=== PATIENT | female | born 1940 | race Caucasian/White ===

== ENCOUNTER 2021-01-02 22:26 | Observation (INO) ==
[2021-01-02] MEDS ORDERED: methylPREDNISolone SOD SUC 125 MG/2 ML VIAL IV STA (23:12)
[2021-01-02] MEDS ORDERED: cefTRIAXone 1,000 MG in SODIUM CHLORIDE 0.9% 100 ML IV STA (23:37)
[2021-01-02] MEDS ORDERED: ALBUTEROL INHALER 18 GM INH PRN (23:47)
[2021-01-02 23:55] LABS: Basophils # 0.1 10*3/uL (0.0-0.2); Basophils % 0.6 % (0.0-0.8); Hematocrit 42.2 VOL% (35.7-47.0); Hemoglobin 13.1 GM/DL (12.0-16.0); Immature Granulocytes % 1.6 %; Immature Granulocytes Absolute 0.23 #; Lymphocytes # 1.4 10*3/uL (1.4-4.0); Lymphocytes % 9.8 % (21.3-54.2); Mean Corpuscular Volume 83.2 FL (87-102); Mean Platelet Volume 9.2 FL (9.6-12.0); Monocytes % 3.3 % (1.7-12.7); Neutrophils % 84.7 % (38.7-73.9); Platelet Count 258 T/CUMM (130-400); Red Blood Count 5.07 MC/CUMM (3.8-5.5); White Blood Count 14.1 T/CUMM (4-12)
[2021-01-03 00:11] LABS: Calcium 9.3 MG/DL (8.5-10.1); Osmolality,Calculated 283.7 MOS/KG (273-304); Potassium 4.5 MMOL/L (3.5-5.1)
[2021-01-03] MEDS ORDERED: GLUCAGON 1 MG VIAL IM PRN (01:00)
[2021-01-03] MEDS ORDERED: ACETAMINOPHEN 325 MG TABLET PO PRN (01:00)
[2021-01-03] MEDS ORDERED: DEXTROSE 50% 25 GM/50 ML VIAL IV PRN (01:00)
[2021-01-03] MEDS ORDERED: ONDANSETRON 4 MG/2 ML VIAL IV PRN (01:00)
[2021-01-03] MEDS: methylPREDNISolone SOD SUC 40 MG/1 ML VIAL IV SCH ×3 (02:28→18:43)
[2021-01-03] MEDS ORDERED: cloNIDine 0.1 MG TABLET PO ONE ×2 (04:00→19:00)
[2021-01-03 06:26] LABS: Basophils % 0.4 % (0.0-0.8); Hematocrit 41.4 VOL% (35.7-47.0); Hemoglobin 13.1 GM/DL (12.0-16.0); Immature Granulocytes % 1.2 %; Immature Granulocytes Absolute 0.13 #; Lymphocytes # 0.8 10*3/uL (1.4-4.0); Lymphocytes % 6.8 % (21.3-54.2); Mean Corpuscular HGB Conc 31.6 GM/DL (32-36); Mean Platelet Volume 9.5 FL (9.6-12.0); Monocytes % 0.7 % (1.7-12.7); Neutrophils % 90.9 % (38.7-73.9); Platelet Count 242 T/CUMM (130-400); Red Blood Count 4.99 MC/CUMM (3.8-5.5); Red Cell Distribution Width 14.1 % (9.3-17.3); White Blood Count 11.1 T/CUMM (4-12)
[2021-01-03 06:44] LABS: Calcium 8.9 MG/DL (8.5-10.1); Osmolality,Calculated 285.8 MOS/KG (273-304); Potassium 4.4 MMOL/L (3.5-5.1)
[2021-01-03 07:53] LABS: Hypochromasia 1+; Lymphocytes 8 % (20-55); Microcytosis 1+; Platelet Estimate Normal; Segmented Neutrophils 91 % (50-85); Total Cells Counted 100
[2021-01-03] MEDS: DOCUSATE SODIUM 100 MG CAPSULE PO SCH ×2 (08:45→20:30)
[2021-01-03] MEDS: PANTOPRAZOLE 40 MG TABLET PO SCH (08:45)
[2021-01-03] MEDS ORDERED: OLMESARTAN 20 MG TABLET PO SCH (09:00)
[2021-01-03] MEDS ORDERED: AZITHROMYCIN 250 MG TABLET PO ONE (11:19)
[2021-01-03] MEDS ORDERED: ZALEPLON 5 MG CAPSULE PO PRN (11:22)
[2021-01-03] MEDS: CHOLECALCIFEROL 1,000 UNIT TABLET PO SCH (13:00)
[2021-01-03] MEDS: INSULIN LISPRO 100 UNIT/ML SUBCUT SCH ×3 (13:00→20:30)
[2021-01-03] MEDS ORDERED: REMDESIVIR 200 MG in SODIUM CHLORIDE 0.9% 210 ML IV ONE (14:00)
[2021-01-04] MEDS: methylPREDNISolone SOD SUC 40 MG/1 ML VIAL IV SCH ×3 (02:13→20:19)
[2021-01-04] MEDS: LEVOTHYROXINE 50 MCG TABLET PO SCH (06:25)
[2021-01-04 06:30] LABS: Alanine Aminotransferase 12 U/L (13-56); Alkaline Phosphatase 66 U/L (45-117); Aspartate Amino Transferase 16 U/L (0-37); Bilirubin,Total < 0.39 MG/DL (0.2-1.0); Blood Urea Nitrogen 25 MG/DL (7-18); Calcium 8.9 MG/DL (8.5-10.1); Carbon Dioxide 21 MMOL/L (21-32); Estimated Glom Filtration Rate 56 ML/MIN; Glucose 201 MG/DL (74-106); Osmolality,Calculated 279.1 MOS/KG (273-304); Potassium 4.9 MMOL/L (3.5-5.1); Sodium 135 MMOL/L (136-145); Total Protein 6.5 G/DL (6.4-8.2)
[2021-01-04] MEDS: INSULIN LISPRO 100 UNIT/ML SUBCUT SCH ×4 (08:11→20:19)
[2021-01-04] MEDS: OLMESARTAN 20 MG TABLET PO SCH (08:16)
[2021-01-04] MEDS: sitaGLIPtin 100 MG TABLET PO SCH (08:16)
[2021-01-04] MEDS: CHOLECALCIFEROL 1,000 UNIT TABLET PO SCH (08:16)
[2021-01-04] MEDS: METOPROLOL TARTRATE 50 MG TABLET PO SCH (08:16)
[2021-01-04] MEDS: AZITHROMYCIN 250 MG TABLET PO SCH (08:17)
[2021-01-04] MEDS: PANTOPRAZOLE 40 MG TABLET PO SCH (08:17)
[2021-01-04] MEDS: DOCUSATE SODIUM 100 MG CAPSULE PO SCH ×2 (08:17→20:18)
[2021-01-04] MEDS: REMDESIVIR 100 MG in SODIUM CHLORIDE 0.9% 100 ML IV SCH (08:48)
[2021-01-04] MEDS: guaiFENesin/DM ER 600-30 MG TABLET PO SCH ×2 (09:23→20:18)
[2021-01-04] MEDS: CLORAZEPATE 3.75 MG TABLET PO PRN ×2 (09:24→20:18)
[2021-01-04 12:04] LABS: Basophils # 0.1 10*3/uL (0.0-0.2); Basophils % 0.2 % (0.0-0.8); Hematocrit 38.8 VOL% (35.7-47.0); Hemoglobin 12.2 GM/DL (12.0-16.0); Immature Granulocytes % 1.6 %; Immature Granulocytes Absolute 0.46 #; Lymphocytes # 1.2 10*3/uL (1.4-4.0); Lymphocytes % 4.1 % (21.3-54.2); Mean Corpuscular HGB Conc 31.4 GM/DL (32-36); Mean Corpuscular Volume 84.7 FL (87-102); Mean Platelet Volume 9.7 FL (9.6-12.0); Monocytes % 4.2 % (1.7-12.7); Neutrophils % 89.9 % (38.7-73.9); Platelet Count 255 T/CUMM (130-400); Red Blood Count 4.58 MC/CUMM (3.8-5.5); Red Cell Distribution Width 14.3 % (9.3-17.3); White Blood Count 28.2 T/CUMM (4-12)
[2021-01-04 12:22] LABS: Hypochromasia 1+; Lymphocytes 5 % (20-55); Microcytosis 1+; Platelet Estimate Adequate; Segmented Neutrophils 90 % (50-85); Total Cells Counted 100
[2021-01-05] MEDS: LEVOTHYROXINE 50 MCG TABLET PO SCH (05:30)
[2021-01-05 05:41] LABS: Basophils # 0.1 10*3/uL (0.0-0.2); Basophils % 0.3 % (0.0-0.8); Hematocrit 40.2 VOL% (35.7-47.0); Hemoglobin 12.6 GM/DL (12.0-16.0); Immature Granulocytes % 1.8 %; Immature Granulocytes Absolute 0.39 #; Lymphocytes # 3.3 10*3/uL (1.4-4.0); Lymphocytes % 14.9 % (21.3-54.2); Mean Corpuscular HGB Conc 31.3 GM/DL (32-36); Mean Corpuscular Volume 83.9 FL (87-102); Mean Platelet Volume 9.9 FL (9.6-12.0); Monocytes % 7.5 % (1.7-12.7); Neutrophils % 75.5 % (38.7-73.9); Platelet Count 224 T/CUMM (130-400); Red Blood Count 4.79 MC/CUMM (3.8-5.5); Red Cell Distribution Width 14.5 % (9.3-17.3); White Blood Count 21.9 T/CUMM (4-12)
[2021-01-05 06:06] LABS: Atypical Lymphocytes Few; Band Neutrophils 2 % (0-10); Hypochromasia 1+; Lymphocytes 18 % (20-55); Promyelocytes 1 %; Segmented Neutrophils 72 % (50-85); Total Cells Counted 100
[2021-01-05 06:07] LABS: Microcytosis 1+; Ovalocytes Slight; Platelet Estimate Normal
[2021-01-05] MEDS: INSULIN LISPRO 100 UNIT/ML SUBCUT SCH ×2 (07:21→14:04)
[2021-01-05] MEDS: METOPROLOL TARTRATE 50 MG TABLET PO SCH (08:59)
[2021-01-05] MEDS: methylPREDNISolone SOD SUC 40 MG/1 ML VIAL IV SCH (08:59)
[2021-01-05] MEDS: CHOLECALCIFEROL 1,000 UNIT TABLET PO SCH (08:59)
[2021-01-05] MEDS: AZITHROMYCIN 250 MG TABLET PO SCH (08:59)
[2021-01-05] MEDS: sitaGLIPtin 100 MG TABLET PO SCH (09:00)
[2021-01-05] MEDS: PANTOPRAZOLE 40 MG TABLET PO SCH (09:00)
[2021-01-05] MEDS: guaiFENesin/DM ER 600-30 MG TABLET PO SCH (09:00)
[2021-01-05] MEDS: OLMESARTAN 20 MG TABLET PO SCH (09:00)
[2021-01-05] MEDS: DOCUSATE SODIUM 100 MG CAPSULE PO SCH (09:01)
[2021-01-05] MEDS: REMDESIVIR 100 MG in SODIUM CHLORIDE 0.9% 100 ML IV SCH (09:21)
[2021-01-05 14:06] VITALS: BP 182/78
== END 2021-01-05 13:41 | disposition home or self-care (01) ==
LOC: EDUNIT# → EDBD → N.ED 22:26 → N.EDINP 22:26 → N.CC 01-03 01:46
PROVIDERS: ADMIT Family Medicine; ATTEND Family Medicine